=== PATIENT | male | born 1960 | race Caucasian/White ===

== ENCOUNTER 2019-02-09 01:31 | Emergency (ER) | payer MEDICAID, OTHER ==
[~2019-02-09] VITALS: Ht 167.6 cm; Wt 117.9 kg
[2019-02-09] MEDS ORDERED: LIDOCAINE VISCOUS 2% 15ML UD MT ONE (02:15)
[2019-02-09 02:43] LABS: Basophils # (auto) 0.1 uL; Eosinophils # (auto) 0.2 uL; Hematocrit 48.8 % (41.0-53.0); Hemoglobin 16.6 g/dL (13.5-17.5); Lymphocytes % (auto) 19.9 % (10.0-50.0); Mean Corpuscular Hemoglobin 30.8 pg (28.0-32.0); Mean Corpuscular Hgb Conc. 34.1 g/dL (32.0-36.0); Mean Corpuscular Volume 90.2 fL (80.0-100.0); Monocytes # (auto) 0.8 uL; Neutrophils # (auto) 6.8 uL; Neutrophils % (auto) 69.1 % (37.0-80.0); Nucleated Red Blood Cells % 0.2 %; Platelet Count (auto) 324 10^3/uL (140-450); Red Blood Cells 5.41 10^6/uL (4.5-5.90); Red Cell Distribution Width 13.7 % (11.8-14.3); White Blood Cell 9.9 10^3/uL (4.4-10.8)
[2019-02-09 02:50] LABS: INR 1.01 (0.9-1.15)
[2019-02-09 02:54] LABS: Albumin 3.3 g/dL (3.4-5.0); Calcium 8.8 mg/dL (8.5-10.1); Potassium 3.9 mmol/L (3.5-5.1)
[2019-02-09 02:57] LABS: BUN/Creatinine Ratio 37.5; Bilirubin, Total 0.6 mg/dL (0.2-1.0); Total Protein 7.7 g/dL (6.4-8.2)
[2019-02-09] MEDS ORDERED: IOHEXOL 300 MG/ML 100ML BOTTLE IJ ONE (03:04)
[2019-02-09] MEDS ORDERED: SODIUM CHLORIDE 0.9% 500 ML IV ONE (03:15)
[2019-02-09] MEDS ORDERED: ONDANSETRON HCL 4 MG/2 ML VIAL IV ONE (03:55)
[2019-02-09 03:57] LABS: Amylase 43 U/L (25-115); Lipase 106 U/L (73-393)
[2019-02-09 11:32] VITALS: BP 128/75
== END 2019-02-09 11:40 | disposition critical access hospital (66) ==
LOC: ER 01:34
DX: R22.1 Localized swelling, mass and lump, neck (principal); J98.8 Other specified respiratory disorders; R04.0 Epistaxis; I10 Essential (primary) hypertension
CPT/HCPCS: 36415; 36600; 70491; 71046; 80053; 82150; 82805; 83690; 84443; 85025; 85610; 85730; 96374; 99285; J2405; J7040; Q9967